=== PATIENT | male | born 1960 | race Caucasian/White ===

== ENCOUNTER → 2016-07-27 | Outpatient (CLI) | payer BC ==
--- NOTE | 2016-07-27 17:46 | DIAGNOSTIC IMAGING REPORT ---
RIGHT SCAPULA CLINICAL HISTORY: PAIN IN R SCAPULA Right COMPARISON: None. DISCUSSION: Fracture anterior aspect scapula. Final or inferior 3 cm of the scapula is angled medially proximal and 45 degrees. There is no evidence for soft tissue swelling. Pre-existing grade 3 separation right acromioclavicular joint unchanged IMPRESSION: Angled fracture inferior margin of the scapula Electronically signed by: Toy Phillips M.D. 07/27/2016 5:45 PM Dictated Date/Time: 07/27/2016 5:39 PM
== END | disposition home or self-care (01) ==
LOC: C.RAD 17:23
PROVIDERS: ATTEND Family Medicine
DX: S42.191A Fracture of other part of scapula, right shoulder, initial encounter for closed fracture (principal); W10.8XXA Fall (on) (from) other stairs and steps, initial encounter

== ENCOUNTER → 2016-08-03 | Outpatient (CLI) | payer BC | END | disposition home or self-care (01) | LOC: C.RDSM 16:00 | PROVIDERS: ATTEND Orthopaedic Surgery Sports Medicine | DX: M25.511 Pain in right shoulder (principal) ==

== ENCOUNTER → 2016-09-12 | Outpatient (CLI) | payer BC | END | disposition home or self-care (01) | LOC: C.RDSM 09-11 12:43 | PROVIDERS: ATTEND Orthopaedic Surgery Sports Medicine | DX: S42.114A Nondisplaced fracture of body of scapula, right shoulder, initial encounter for closed fracture (principal); X58.XXXA Exposure to other specified factors, initial encounter ==